=== PATIENT | female | born 1930 | race Caucasian/White ===

== ENCOUNTER 2017-05-31 20:59 | Emergency (ER) | payer OTHER ==
[~2017-05-31] VITALS: Ht 160 cm; Wt 65.0 kg
[~2017-05-31 20:59] MED LIST: ASPI-664 PO; CITA-104 PO; DOXE25CA43 PO; HYDR-905 PO; HYDR12.58 PO; LORA0.5T PO; LOSA100T7 PO; LOVA40TA64 PO; METO50TA16 PO; MTF1000T PO; RIVA20TA PO
[2017-05-31 21:02] VITALS: Ht 160 cm; Wt 65.0 kg
[2017-05-31] MEDS ORDERED: OXYCODONE/ACETAMINOPHEN (5/325) TAB PO ONE (21:30)
--- NOTE | 2017-05-31 22:17 | RADRPT ---
PROCEDURE: US right lower extremity veins. CLINICAL INDICATION: Right leg pain and swelling. TECHNIQUE: Multiple longitudinal and transverse images of the right lower extremity veins were obt ained with jacob scale and color Doppler imaging. The common femoral vein, femoral vein, and poplitea l vein were evaluated. 2D grayscale measurements with compression sonography, pulsed Doppler, color Doppler, and pulsed Doppler with augmentation. COMPARISON: No prior studies are available for comparison. FINDINGS: The right common femoral, femoral and popliteal veins are normally compressible throughout. Color f low demonstrates normal filling of the vessels. Normal waveforms are visualized and there is normal response to augmentation. IMPRESSION: 1. No evidence of deep vein thrombosis involving the right lower extremity. RPTAT: QQ .Dinesh Chand MD, MD Date Time Electronically viewed and signed by .Dinesh Chand MD, on 05/31/2017 22:17 .R/
--- NOTE | 2017-05-31 22:20 | RADRPT ---
PROCEDURE: XR Right Hip. CLINICAL INDICATION: Right hip pain. TECHNIQUE: Two views. Frontal and lateral. COMPARISON: Pelvis x-ray dated 08/18/2016. FINDINGS: There is no fracture or dislocation. There is a calcified fibroid in the right side of the pelvis as seen previously. Surgical clips are present in the right inguinal region. Articular surfaces are intact. There is no lytic or blastic lesion. There is no radiopaque foreign body. IMPRESSION: 1. 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 2. Prior right inguinal surgery. 3. Otherwise unremarkable study with no evidence of fracture. RPTAT: QQ .Dinesh Chand MD, MD Date Time Electronically viewed and signed by .Dinesh Chand MD, MD on 05/31/2017 22:19 .R/
--- NOTE | 2017-05-31 22:50 | ERD ---
ER Documentation Chief Complaint Date/Time DATE: 05/31/17 TIME: 22:49 Chief Complaint BIB DAUGHTER FOR RT LEG PAIN , RT GROIN PAIN , BACK PAIN HPI 79-year-old female brought in by daughter for right lower back right pelvic and right extremity pain. She said she strained it while doing physical therapy. Denies any bowel or bladder incontinence. Denies any fevers or chills. Denies any direct trauma. No other current complaints. Pain is mild in intensity. ROS All systems reviewed and are negative except as per history of present illness. Medications Home Meds Active Scripts Hydrocodone/Acetaminophen ([place] 7.5-325 Tablet) 1 Each Tablet, 1 EACH PO every 4-6 hours for PAIN, #20 TAB Prov:LATESHA SMYTH DO 08/30/16 Reported Medications Lorazepam* (Lorazepam*) 0.5 Mg Tablet, 0.5 MG PO Q2H Y for SEIZURES, TAB 08/18/16 Lorazepam* (Lorazepam*) 0.5 Mg Tablet, 0.5 MG PO Q8 Y for ANXIETY, TAB 08/18/16 Rivaroxaban* (Xarelto*) 20 Mg Tablet, 20 MG PO WITH DINNER, TAB 08/18/16 Metformin* (Glucophage*) 1,000 Mg Tablet, 1000 MG PO BID, #60 TAB 08/18/16 Metoprolol Succinate* (Toprol XL*) 50 Mg Tab.er.24h, 50 MG PO DAILY, #30 TAB 08/18/16 Hydrochlorothiazide* (Hydrochlorothiazide*) 12.5 Mg Tablet, 12.5 MG PO DAILY, # 30 TAB 08/18/16 Losartan Potassium* (Losartan Potassium*) 100 Mg Tablet, 100 MG PO DAILY, TAB 08/18/16 Aspirin* (Aspirin* EC) 81 Mg Tablet.dr, 81 MG PO DAILY, TAB 08/18/16 Lovastatin* (Altoprev*) 40 Mg Tab.sr.24h, 40 MG PO HS, TAB 08/18/16 Doxepin Hcl* (Doxepin Hcl*) 25 Mg Capsule, 25 MG PO HS, CAP 08/18/16 Citalopram Hydrobromide* (Citalopram Hydrobromide*) 40 Mg Tablet, 40 MG PO DAILY , #30 TAB 08/18/16 Allergies Allergies: Coded Allergies: No Known Allergies (Verified Allergy, Unknown, 12/11/15) PMhx/Soc History of Surgery: No Anesthesia Reaction: No Hx Neurological Disorder: No Hx Respiratory Disorders: No Hx Cardiac Disorders: No Hx Psychiatric Problems: No Hx Miscellaneous Medical Probl: Yes (htn,dm,depression) Hx Alcohol Use: No Hx Substance Use: No Hx Tobacco Use: No Physical Exam Vitals Vital Signs Date Time Temp Pulse Resp B/P Pulse Ox O2 Delivery O2 Flow Rate FiO2 05/31/17 21:02 99.7 89 18 168/70 95 Physical Exam Const: [] Head: Atraumatic Eyes: Normal Conjunctiva ENT: Normal External Ears, Nose and Mouth. Neck: Full range of motion..~ No meningismus. Resp: Clear to auscultation bilaterally Cardio: Regular rate and rhythm, no murmurs Abd: Soft, non tender, non distended. Normal bowel sounds Skin: Scar noted anterior aspect of right patella from previous surgery Back: No midline or flank tenderness Ext: No cyanosis, or edema Neur: Awake and alert Psych: Normal Mood and Affect Results 24 hrs Current Medications Medications (Trade) Dose Ordered Sig/Gene Route PRN Reason Start Time Stop Time Status Last Admin Dose Admin Oxycodone/ Acetaminophen (Percocet (5/ 325)) 1 tab ONCE ONCE PO 05/31/17 21:30 05/31/17 21:33 DC 05/31/17 22:15 Procedures/MDM X-ray Hip 2V Interpreted by me: Bones: No fracture Joints: No dislocation Foreign body: None DVT study negative Patient's musculoskeletal symptoms have stabilized while they have been evaluated in the department and are appropriate for outpatient work up. No evidence of cauda equina, cord compression, infiltrative, or infectious etiology. Departure Diagnosis: Primary Impression: Sciatica Laterality: right Qualified Code: M54.31 - Sciatica of right side Condition: Stable NEFTALI LEÓN May 31, 2017 22:50
[2017-05-31] MEDS ORDERED: OXYC-279 PO (22:51)
[2017-05-31 23:44] LABS: ADD SCAN DIFF NO
[2017-05-31 23:45] LABS: BASOPHILS % 0.2 % (0.0-2.0); EOSINOPHILS # 0.1 10^3/ul (0.0-0.5); EOSINOPHILS % 0.3 % (0.0-7.0); HEMATOCRIT 28.7 % (37.0-47.0); HEMOGLOBIN 9.2 g/dl (12.0-16.0); LYMPHOCYTES # 1.3 10^3/ul (0.8-2.9); LYMPHOCYTES % 6.4 % (15.0-51.0); MEAN CORPUSCULAR HEMOGLOBIN 25.8 pg (29.0-33.0); MEAN CORPUSCULAR HGB CONC 32.1 g/dl (32.0-37.0); MEAN CORPUSCULAR VOLUME 80.6 fl (82.0-101.0); MEAN PLATELET VOLUME 9.9 fl (7.4-10.4); MONOCYTE # 1.3 10^3/ul (0.3-0.9); MONOCYTES % 6.1 % (0.0-11.0); NEUTROPHILS % 86.4 % (39.0-77.0); PLATELET COUNT 405 10^3/UL (140-415); RED BLOOD COUNT 3.56 10^6/ul (4.20-5.40); RED CELL DISTRIBUTION WIDTH 13.5 % (11.5-14.5); WHITE BLOOD COUNT 20.8 10^3/ul (4.8-10.8)
[2017-06-01 00:12] LABS: ALBUMIN 4.3 g/dl (3.3-4.9); ALBUMIN/GLOBULIN RATIO 1.34; CREATININE 1.16 mg/dl (0.44-1.00); POTASSIUM 5.3 mmol/L (3.5-5.1); TOTAL PROTEIN 7.5 g/dl (6.1-8.1)
[2017-06-01 01:20] VITALS: BP 160/49; PULSE 81; RESP 18
== END 2017-06-01 01:21 | disposition home or self-care (01) ==
LOC: E/R 20:59
DX: M54.31 Sciatica, right side (principal); I10 Essential (primary) hypertension; E11.9 Type 2 diabetes mellitus without complications; Z79.82 Long term (current) use of aspirin; Z79.84 Long term (current) use of oral hypoglycemic drugs
CPT/HCPCS: 73510; 80053; 85025; 93971